=== PATIENT | male | born 1960 | race Caucasian/White ===

== ENCOUNTER 2020-07-28 | Emergency (ER) | payer MEDICAID ==
[~2020-07-28] VITALS: Ht 170.2 cm; Wt 70.3 kg
[2020-07-28 00:31] LABS: ABSOLUTE EOSINOPHILS 0.1 thou/uL (0.0-0.7); ABSOLUTE LYMPHOCYTES 1.5 thou/uL (0.8-5.3); ABSOLUTE MONOCYTES 0.5 thou/uL (0.0-1.2); BASOPHILS 0.6 %; EOSINOPHILS 1.3 %; HEMATOCRIT 34.3 % (42.0-52.0); HEMOGLOBIN 10.4 gm/dL (14.0-18.0); LYMPHOCYTES 24.1 %; MCH 21.6 pg (26.0-34.0); MCHC 30.4 g/dL (28.0-37.0); MPV 8.1 fl. (7.2-11.1); NUCLEATED RBCS 0 /100WBC; PLATELET COUNT* 212 thou/uL (150-400); RBC 4.83 mil/uL (4.50-6.00); RDW-CV 22.4 % (10.5-14.5); WBC 6.1 thou/uL (4.0-11.0)
[2020-07-28 00:40] LABS: CALCIUM 8.7 mg/dL (8.5-10.1); CREATININE 0.7 mg/dL (0.6-1.3); POTASSIUM 3.5 mmol/L (3.5-5.1)
[2020-07-28 00:44] LABS: ALBUMIN 3.8 g/dL (3.4-5.0); MAGNESIUM 1.8 mg/dL (1.8-2.4); TOTAL BILIRUBIN 0.7 mg/dL (<0.1-1.0); TOTAL PROTEIN 6.8 g/dL (6.4-8.2)
[2020-07-28 02:36] LABS: HYPOCHROMASIA 1+
[2020-07-28 02:37] LABS: ANISOCYTOSIS 2+; MICROCYTES 2+; OVALOCYTES 1+; POIKILOCYTOSIS 1+; SCHISTOCYTES Occasional
[2020-07-28 06:45] VITALS: BP 111/61
--- NOTE | 2020-07-28 13:44 | EKG ---
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[place] : 1960 Requested By: Rain Marte Order Number: [id number] Gaudencio MD: Francisco Javier Bella Measurements Intervals [place] Rate: 79 P: 59 [place]: 142 QRS: 13 QRSD: 103 T: 55 QT: 400 QTc: 459 Interpretive Statements Sinus rhythm Baseline wander in lead(s) V3 No previous ECG available for comparison Electronically Signed On 07-28-2020 13:44:06 [employer] by Francisco Javier Bella [email or web address] <ELECTRONICALLY SIGNED> By: Francisco Javier Bella MD, [facility] 07/28/20 1344 0004 0004 Francisco Javier Bella MD, FACC /EPI
== END 2020-07-28 06:45 | disposition home or self-care (01) ==
LOC: M.ERS
PROVIDERS: Emergency Medicine
DX: F10.129 Alcohol abuse with intoxication, unspecified (principal); Y90.8 Blood alcohol level of 240 mg/100 ml or more

== ENCOUNTER 2020-08-15 13:26 | Emergency (ER) | payer MEDICAID ==
[~2020-08-15] VITALS: Ht 170.2 cm; Wt 68.5 kg
[2020-08-15 13:29] VITALS: BP 134/91
--- NOTE | 2020-08-15 17:42 | EKG ---
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1960 Requested By: Mindy Chapa Order Number: [id number] Gaudencio MD: Gucci Burr Measurements Intervals [place] Rate: 63 P: 44 [place]: 136 QRS: 0 QRSD: 95 T: 33 QT: 426 QTc: 437 Interpretive Statements Sinus rhythm Left ventricular hypertrophy, by voltage Compared to ECG 07/28/2020 00:04:08 Left ventricular hypertrophy now present Electronically Signed On 08-15-2020 17:41:54 [employer] by Gucci Burr [email or web address] <ELECTRONICALLY SIGNED> By: Gucci Burr MD, [facility] 08/15/20 174 1335 1335 Gucci Burr MD, FAC /EPI
== END 2020-08-15 13:57 ==
LOC: M.ERS 13:26
DX: S00.00XA Unspecified superficial injury of scalp, initial encounter (principal); M25.511 Pain in right shoulder; R10.84 Generalized abdominal pain; W01.0XXA Fall on same level from slipping, tripping and stumbling without subsequent striking against object, initial encounter; Y93.89 Activity, other specified; Y92.89 Other specified places as the place of occurrence of the external cause; Y99.8 Other external cause status